=== PATIENT | male | born 1995 | race Asian ===

== ENCOUNTER 2018-08-23 16:31 | Emergency (ER) | payer SELFPAY ==
[~2018-08-23] VITALS: Ht 170.2 cm; Wt 96.6 kg
[2018-08-23 17:01] VITALS: Ht 170.2 cm; Wt 96.6 kg
[2018-08-23 20:25] VITALS: BP 145/71
== END 2018-08-23 20:25 | disposition home or self-care (01) ==
LOC: ED 16:31
DX: S60.311A Abrasion of right thumb, initial encounter (principal); X58.XXXA Exposure to other specified factors, initial encounter; Y93.89 Activity, other specified; Y92.89 Other specified places as the place of occurrence of the external cause; Y99.8 Other external cause status
CPT/HCPCS: 90715